=== PATIENT | female | born 1970 | race Caucasian/White ===

== ENCOUNTER 2017-04-22 08:28 | Outpatient (CLI) | payer OTHER | END 2017-04-22 08:41 | disposition home or self-care (01) | LOC: LAB 08:28 | DX: D64.89 Other specified anemias (principal); E88.89 Other specified metabolic disorders; D68.8 Other specified coagulation defects; N39.0 Urinary tract infection, site not specified; R82.79 Other abnormal findings on microbiological examination of urine; A49.02 Methicillin resistant Staphylococcus aureus infection, unspecified site ==

== ENCOUNTER 2017-04-22 08:42 | Outpatient (CLI) | payer OTHER | END 2017-04-22 09:00 | disposition home or self-care (01) | LOC: EKG 08:42 | DX: I49.8 Other specified cardiac arrhythmias (principal) ==

== ENCOUNTER → 2017-04-23 | Outpatient (CLI) | payer OTHER | END | disposition home or self-care (01) | LOC: RAD 08:59 | DX: Z76.89 Persons encountering health services in other specified circumstances (principal) ==

== ENCOUNTER 2021-04-16 14:32 | Outpatient (CLI) | payer OTHER | END 2021-04-16 14:37 | disposition home or self-care (01) | LOC: RAD 14:32 | PROVIDERS: ATTEND Orthopaedic Surgery | DX: M25.511 Pain in right shoulder (principal); M25.512 Pain in left shoulder ==

== ENCOUNTER 2021-05-13 06:20 | Day surgery (SDC) | payer OTHER ==
[~2021-05-13 06:20] MED LIST: CYMBALTA30 MG PO; SYNTHROID50 MCG PO; TOPROL XL50 M1 PO
== END 2021-05-13 11:50 | disposition home or self-care (01) ==
LOC: CIR.AMB 06:20
PROVIDERS: ATTEND Orthopaedic Surgery
DX: D64.9 Anemia, unspecified (principal); E88.9 Metabolic disorder, unspecified; D68.8 Other specified coagulation defects; N39.0 Urinary tract infection, site not specified; A49.02 Methicillin resistant Staphylococcus aureus infection, unspecified site; Z76.89 Persons encountering health services in other specified circumstances; Z03.818 Encounter for observation for suspected exposure to other biological agents ruled out; I10 Essential (primary) hypertension; M25.511 Pain in right shoulder